=== PATIENT | female | born 1965 | race Caucasian/White ===

== ENCOUNTER → 2024-08-31 12:39 | Outpatient (REF) | payer BC, SELFPAY | LOC: HWWDC 12:39 | PROVIDERS: ATTENDING PHYSICIAN Obstetrics & Gynecology Gynecology | DX: Z12.31 Encounter for screening mammogram for malignant neoplasm of breast (principal) | CPT/HCPCS: 77063; 77067 ==

== ENCOUNTER → 2025-06-05 15:06 | Outpatient (REF) | payer BC, SELFPAY | LOC: HWRAD 15:06 | PROVIDERS: ATTENDING PHYSICIAN Family Medicine | DX: R59.0 Localized enlarged lymph nodes (principal) | CPT/HCPCS: 76536 ==

== ENCOUNTER → 2025-06-13 14:55 | Outpatient (REF) | payer BC, SELFPAY | LOC: HWEVLT 14:55 | PROVIDERS: ATTENDING PHYSICIAN Radiology Vascular & Interventional Radiology | DX: I83.893 Varicose veins of bilateral lower extremities with other complications (principal) | CPT/HCPCS: 93970 ==

== ENCOUNTER → 2025-07-09 07:09 | Outpatient (REF) | payer BC, SELFPAY | LOC: HWRAD 07:09 | PROVIDERS: ATTENDING PHYSICIAN Family Medicine | DX: Z78.0 Asymptomatic menopausal state (principal); M85.9 Disorder of bone density and structure, unspecified; Z82.62 Family history of osteoporosis | CPT/HCPCS: 77080 ==